=== PATIENT | female | born 1975 | race Caucasian/White ===

== ENCOUNTER 2017-03-13 14:04 | Emergency (ER) | payer OTHER ==
--- NOTE | 2017-03-13 14:44 | ERNOTE ---
Lower Extremity HPI - General Lower Extremities Pain: hip: right Time Seen by Provider: 03/13/17 14:34 Source: patient - Immun/Allergies/Home Medications Immunizations: IMMUNIZATION HX Immunizations Up to Date Yes History of Influenza Vaccine No Hx Pneumococcal Vaccination No Allergies/Adverse Reactions: Allergies Allergy/AdvReac Type Severity Reaction Status Date / Time No Known Allergies Allergy Verified 03/13/17 14:27 Home Medications: HOME MEDICATIONS Cyclobenzaprine HCl [Flexeril] 10 mg PO TID PRN #30 tab 03/13/17 [Last Taken Unknown] Ibuprofen [Motrin] 600 mg PO Q6H PRN #40 tab 03/13/17 [Last Taken Unknown] - History of Present Illness Narrative: Patient stepped in hole in her yard and twisted her right hip, did not fall down , able to ambulate, pain in her hip and right lower back, no other injuries. She has bee taking ibuprofen 400mg wit some relieve Date (Duration): 03/11/17 Location of Incident: home Loss of Consciousness: Reports: no loss of consciousness Subsequent Symptoms: Denies: sensory loss, numbness Review of Systems - Review of Systems Constitutional: Absent: recent illness ENT: Absent: sore throat Respiratory: Absent: shortness of breath Cardiology: Absent: chest pain Gastrointestinal/Abdominal: Absent: nausea Genitourinary: Present: no symptoms reported Musculoskeletal: Present: See HPI Neurological: Absent: headache, weakness, numbness - Patient's Past Medical History Patient History - Medical: Chronic Pain Patient History - Cardiac/Respiratory: No pertinent hx Patient History - Cancer: No Hx of Cancer Patient History - Surgical Procedures: Cholecystectomy, Tubal Ligation Patient History - Other: None LMP (females 10-50): this week LMP (Calendar): 03/13/17 - Social History Living Situations: significant other Abuse History: No History of abuse Psych History: No pertinent hx Alcohol Use: occasionally Drug Use: none - Immunizations Immunizations Up to Date: Yes Hx Pneumococcal Vaccination: No History of Influenza Vaccine: No Physical Exam - Physical Exam General Appearance: Present: wd/wn, alert, no apparent distress, obese Respiratory: Present: no respiratory distress, lungs clear Cardiovascular/Chest: Present: regular rate, rhythm Back Exam: Present: normal inspection, normal range of motion, no CVA tenderness , no vertebral tenderness, muscle spasm - right lower back Extremity Exam: Present: normal inspection, other - tenderness posterior hip, slightly tender on ROM, able to ambulate Neurological Exam: Present: alert, oriented, normal mood/affect, no motor/ sensory deficits Skin Exam: Present: normal color, warm/dry ED Progress - Vital Signs Patient's Vital Signs:: I have reviewed the patient's vital signs. Vital Signs: Vital Signs 03/13/17 14:19 Temperature 37.2 C Pulse Rate 76 Respiratory 14 Rate Blood Pressure 131/91 O2 Sat by Pulse 97 Oximetry - Progress/Reassessment Chief Complaint: Lower Extremity Pain/ Injury Progress Note-Subjective: 03/13/17 14:45 discussed that fracture is unlikely as patient is able to ambulate, offered imaging, patient declined, bursitis unlikely as no lateral tenderness will treat with increased dose of NSAIDs and flexeril Departure Clinical Impression: Sprain of right hip Qualifiers: Encounter type: initial encounter Qualified Code(s): S73.101A - Unspecified sprain of right hip, initial encounter - Departure Disposition: Home self-care Condition: Good Instructions: Hip Pain Referrals: Bobbi Colmenares FNP [Primary Care Provider] - Prescriptions: Cyclobenzaprine HCl [Flexeril] 10 mg PO TID PRN #30 tab PRN Reason: MUSCLE SPASMS Ibuprofen [Motrin] 600 mg PO Q6H PRN #40 tab PRN Reason: Pain
[2017-03-13 15:13] VITALS: BP 138/86
== END 2017-03-13 15:01 | disposition home or self-care (01) ==
LOC: ER 14:04
DX: S73.101A Unspecified sprain of right hip, initial encounter (principal); G89.29 Other chronic pain

== ENCOUNTER 2017-05-26 05:17 | Emergency (ER) | payer OTHER ==
[2017-05-26 05:24] VITALS: BP 149/96
[2017-05-26] MEDS ORDERED: HYDROcodone/ACETAMINOPHEN 1 EACH TABLET PO ONE (05:31)
[2017-05-26] MEDS ORDERED: KETOROLAC TROMETHAMINE 60 MG/2 ML VIAL IM ONE ×2 (05:31→05:34)
[2017-05-26] MEDS ORDERED: HYDROcodone/ACETAMINOPHEN 1 EACH TABLET ONE (05:34)
--- NOTE | 2017-05-26 05:36 | ERNOTE ---
Lower Extremity HPI - Narrative Date of Service: 05/26/17 - General Lower Extremities Pain: hip: right Time Seen by Provider: 05/26/17 05:28 Source: patient - Immun/Allergies/Home Medications Immunizations: IMMUNIZATION HX Immunizations Up to Date Yes History of Influenza Vaccine No Hx Pneumococcal Vaccination No Allergies/Adverse Reactions: Allergies Allergy/AdvReac Type Severity Reaction Status Date / Time No Known Allergies Allergy Verified 05/26/17 05:24 Home Medications: HOME MEDICATIONS Ibuprofen [Motrin] 600 mg PO Q6H PRN #40 tab 03/13/17 [Last Taken 05/26/17 00:00 ] HYDROcodone/ACETAMINOPHEN [[place] 5-325] 1 each PO QID PRN #20 tablet 05/26/17 [ Last Taken Unknown] - History of Present Illness Narrative: 41-year-old female with a history of chronic right leg pain comes to the emergency room with right hip pain which started Saturday. The patient says she was moving a dresser out to the garage. She missed a step going down from the patio and twisted her right hip. She says she had immediate onset of pain. She 's been taking ibuprofen to help with the pain. She says she was unable to sleep last night so she decided to come to the hospital. She does have radiation down the back of the leg to the knee. It does not go below the knee. She denies any numbness or tingling. Moving walking make it worse. Nothing seems to make it better. She has no other somatic complaints. Review of her visit history shows that she has been seen multiple times over the last 5 years for right hip pain Review of Systems - Review of Systems Constitutional: Present: no symptoms reported EYE: Present: no symptoms reported ENT: Present: no symptoms reported Respiratory: Present: no symptoms reported Cardiology: Present: no symptoms reported Gastrointestinal/Abdominal: Present: no symptoms reported Genitourinary: Present: no symptoms reported Musculoskeletal: Present: muscle pain, joint pain, other - right hip lateral leg and thigh Skin: Present: no symptoms reported Neurological: Present: no symptoms reported. Absent: weakness, numbness, tingling Endocrine: Present: no symptoms reported Hematologic/Lymphatic: Present: no symptoms reported Psych: Present: no symptoms reported All Other Systems: All systems neg except as marked - Patient's Past Medical History Patient History - Medical: Chronic Pain Patient History - Cardiac/Respiratory: No pertinent hx Patient History - Cancer: No Hx of Cancer Patient History - Surgical Procedures: Cholecystectomy, Tubal Ligation Patient History - Other: None LMP (Calendar): 05/10/17 - Social History Living Situations: home Abuse History: No History of abuse Psych History: No pertinent hx Smoking Status: Current every day smoker Alcohol Use: occasionally - Immunizations Immunizations Up to Date: Yes Hx Pneumococcal Vaccination: No History of Influenza Vaccine: No Physical Exam - Physical Exam General Appearance: Present: wd/wn, alert, no apparent distress Head Exam: Present: normal inspection, no evidence of injury Eye Exam: Normal inspection: bilateral Ears, Nose, Throat: Present: normal ENT inspection Neck: Present: normal inspection Respiratory: Present: no respiratory distress, lungs clear Cardiovascular/Chest: Present: regular rate, rhythm Back Exam: Present: normal inspection, no vertebral tenderness Extremity Exam: Present: other - patient has an antalgic gait due to pain. Tenderness to palpation over the lateral right hip. Tenderness to rotation and all movements at the hip. Distal neurovascular is normal Neurological Exam: Present: alert, oriented, normal mood/affect, no motor/ sensory deficits Skin Exam: Present: normal color, warm/dry Lymphatic Exam: Present: no adenopathy ED Progress - Vital Signs Vital Signs: Vital Signs 05/26/17 05:20 Temperature 36.5 C Pulse Rate 87 Respiratory 18 Rate Blood Pressure 149/96 O2 Sat by Pulse 100 Oximetry - X-Ray X-Ray #1 X-Ray: hip Interpretation: Interp. by me X-ray Comments: No acute fractures or abnormalities are noted - Progress/Reassessment Chief Complaint: Hip Pain/Injury Departure Clinical Impression: Strain of hip - Departure Disposition: Home self-care Condition: Stable Instructions: Hip Pain Additional Instructions: As we discussed there is nothing broken in her hip. The x-rays appear normal. The way to even injured her hip and the pain sounds very much like sprained hip. This is stretching of the ligaments. It should get better with time. He should continue to take ibuprofen. Take 3 regular tablets (this 600 mg) every 6 hours to help with pain. Take this for at least 5 days. He can take the prescribed Referrals: Bobbi Colmenares FNP [Primary Care Provider] - Prescriptions: HYDROcodone/ACETAMINOPHEN [[place] 5-325] 1 each PO QID PRN #20 tablet PRN Reason: Pain
== END 2017-05-26 06:00 | disposition home or self-care (01) ==
LOC: ER 05:17
DX: S76.011A Strain of muscle, fascia and tendon of right hip, initial encounter (principal); W10.9XXA Fall (on) (from) unspecified stairs and steps, initial encounter; Y93.89 Activity, other specified; Y92.008 Other place in unspecified non-institutional (private) residence as the place of occurrence of the external cause; F17.200 Nicotine dependence, unspecified, uncomplicated

== ENCOUNTER 2017-06-24 19:12 | Emergency (ER) | payer OTHER ==
--- NOTE | 2017-06-24 20:08 | ERNOTE ---
Date of Service: 06/24/17 Time Seen by Provider: 06/24/17 19:45 Stated Complaint: COUGH,HIP PAIN FOOT PAIN Presenting Symptoms:: cough, runny nose Source: patient, RN notes reviewed, past records Exam Limitations: no limitations Immunizations: IMMUNIZATION HX Immunizations Up to Date Yes History of Influenza Vaccine No Hx Pneumococcal Vaccination No Allergies/Adverse Reactions: Allergies No Known Allergies Allergy (Verified 06/24/17 19:26) Home Medications: HOME MEDICATIONS Amox Tr/Potassium Clavulanate [Augmentin 875-125 Tablet] 875 mg PO Q12H #20 tab 06/24/17 [Last Taken Unknown] - History of Present Ilness Narrative: 41 year old female presents to the ED for a cough, nasal congestion, sinus pain and malaise that began 4 days ago. She has been taking Nyquil and Dayquil. She also reports right hip pain. This has been on ongoing issue for her for some time but she believes she strained it recently, making the pain worse. Her left foot is also bothering her, but she attributes this to her gait with the hip pain. Frequency/Possible Cause: Reports: illness exposure Associated Symptoms: Reports: cough, facial pain, nasal congestion, nasal drainage, headache, sore throat. Denies: chest pain/soreness, shortness of breath, wheezing, dizziness, earache, muscle aches Prior Treatment: Reports: recently seen. Denies: currently on antibiotics Review of Systems - Review of Systems Constitutional: Present: See HPI EYE: Absent: eye pain, eye discharge ENT: Present: See HPI Respiratory: Present: See HPI Cardiology: Present: See HPI Gastrointestinal/Abdominal: Absent: nausea, vomiting Genitourinary: Present: no symptoms reported Musculoskeletal: Present: neck pain, joint pain Skin: Absent: rash, lesions Neurological: Present: See HPI Endocrine: Present: no symptoms reported Hematologic/Lymphatic: Present: no symptoms reported Psych: Present: no symptoms reported - Patient's Past Medical History Patient History - Medical: Chronic Pain Patient History - Cardiac/Respiratory: Hypertension Patient History - Cancer: No Hx of Cancer Patient History - Surgical Procedures: Cholecystectomy, Tubal Ligation Patient History - Other: None - Social History Living Situations: home Abuse History: No History of abuse Psych History: No pertinent hx Smoking Status: Current every day smoker Alcohol Use: occasionally Drug Use: none - Immunizations Immunizations Up to Date: Yes Hx Pneumococcal Vaccination: No History of Influenza Vaccine: No Physical Exam - Physical Exam General Appearance: Present: wd/wn, alert, no apparent distress, obese Head Exam: Present: tenderness - maxillary sinuses. Absent: swelling Eye Exam: Normal inspection: bilateral Ears, Nose, Throat: Present: nasal congestion, sinus pain/drainage, pharyngeal erythema. Absent: abnormal TM (R), abnormal TM (L), dry mucous membranes Neck: Present: normal inspection, nontender, supple Respiratory: Present: no respiratory distress, normal breath sounds, no accessory muscle use, lungs clear Cardiovascular/Chest: Present: regular rate, rhythm, no murmur Extremity Exam: Present: normal inspection, non-tender, normal range of motion, no edema, other - gait mildly impaired Neurological Exam: Present: alert, oriented, normal mood/affect, no motor/ sensory deficits Skin Exam: Present: normal color, warm/dry ED Progress - Vital Signs Patient's Vital Signs:: I have reviewed the patient's vital signs. Vital Signs: Vital Signs 06/24/17 19:21 Temperature 36.5 C Pulse Rate 104 H Respiratory 18 Rate Blood Pressure 158/118 O2 Sat by Pulse 100 Oximetry - Progress/Reassessment Chief Complaint: Upper Respiratory Symptoms Progress:: Unchanged Plan - Plan Plan: Rx given for Augmentin, instructed to start this if no improvement in URI symptoms later this week. Discussed hip pain and how this is a chronic issue for her. To see her PCP for this. Departure Clinical Impression: Sinusitis, acute Qualifiers: Sinusitis location: unspecified location Recurrence: not specified as recurrent Qualified Code(s): J01.90 - Acute sinusitis, unspecified - Departure Disposition: Home Follow Up Needed Condition: Good Instructions: Sinusitis, Adult, [id number], Form - Excuse from Work, School, or Physical Activity Additional Instructions: Start antibiotic if there is no improvement by See Bobbi about ongoing hip pain Referrals: Bobbi Colmenares FNP [Primary Care Provider] - Prescriptions: Amox Tr/Potassium Clavulanate [Augmentin 875-125 Tablet] 875 mg PO Q12H #20 tab
[2017-06-24 22:29] VITALS: BP 151/94
== END 2017-06-24 20:10 | disposition home or self-care (01) ==
LOC: ER 19:12
DX: J01.90 Acute sinusitis, unspecified (principal); F17.200 Nicotine dependence, unspecified, uncomplicated